=== PATIENT | male | born 1980 | race Caucasian/White ===

== ENCOUNTER 2021-05-16 20:44 | Emergency (ER) | payer BC ==
[~2021-05-16] VITALS: Ht 182.9 cm; Wt 86.2 kg
[2021-05-16 21:06] VITALS: BP 135/84
--- NOTE | 2021-05-16 21:10 | NUR ---
to lobby a/w bed ambulatory
[2021-05-16] MEDS ORDERED: LIDOCAINE 2% 1000 MG/50 ML VIAL INJ ONE (23:05)
--- NOTE | 2021-05-16 23:17 | NUR ---
Patient has a laceration to RT [address] Dr[address] ELLIOTT applied sutures using sterile technique. Edges well approximated. Site cleansed with NS. No bleeding noted. Pt tolerated well.
--- NOTE | 2021-05-16 23:18 | NUR ---
Dr. Connell examining patient.
[2021-05-16] MEDS ORDERED: BACITRACIN OINT 500 UNITS/GM PKT TP ONE (23:36)
[2021-05-17 00:22] VITALS: BP 135/84
--- NOTE | 2021-05-17 00:22 | NUR ---
Patient discharged with v/s stable. Written and verbal after care instructions given and explained. Patient verbalized understanding. Ambulatory with steady gait. All questions addressed prior to discharge. Advised to follow up with PMD.
== END 2021-05-17 00:22 | disposition home or self-care (01) ==
LOC: MED 20:44
DX: S61.216A Laceration without foreign body of right little finger without damage to nail, initial encounter (principal); W45.8XXA Other foreign body or object entering through skin, initial encounter; Y93.89 Activity, other specified; Y92.89 Other specified places as the place of occurrence of the external cause; Y99.8 Other external cause status
CPT/HCPCS: 12002; 99282; J2001